=== PATIENT | female | born 1985 | race Caucasian/White ===

== ENCOUNTER → 2017-04-03 | Outpatient (CLI) | payer OTHER ==
[2017-04-03 12:04] LABS: CHOLESTEROL/HDL RATIO 2.7
== END | disposition home or self-care (01) ==
LOC: C.LABBC 08:02
PROVIDERS: ATTEND Family Medicine
DX: Z13.220 Encounter for screening for lipoid disorders (principal); G25.81 Restless legs syndrome

== ENCOUNTER → 2017-06-14 | Outpatient (CLI) | payer OTHER ==
[~2017-06-14] VITALS: Ht 167.6 cm; Wt 70.8 kg
[2017-06-14 15:00] VITALS: BP 123/85; PULSE 77; Ht 167.6 cm; Wt 70.8 kg
== END | disposition home or self-care (01) ==
LOC: C.NEUR 14:17
PROVIDERS: ATTEND Internal Medicine Pulmonary Disease
DX: G47.00 Insomnia, unspecified (principal); G47.10 Hypersomnia, unspecified; R06.83 Snoring; G25.81 Restless legs syndrome; R53.83 Other fatigue

== ENCOUNTER → 2017-07-08 | Outpatient (CLI) | payer OTHER ==
--- NOTE | 2017-07-09 06:03 | PAP/PSG TECHNICIAN REPORT ---
[facility] Cabinet Worker Polysomnogram Report Study name: None Report date: 07/09/2017 Study date: 07/08/2017 Referring Physician: Leonid Louis M.D. Name: DEIDRE OLSEN Interpreting Physician: Leonid Louis M.D. Date of : 1985 Cabinet Worker: Lorri Aguilera RPSGT. Sex: Female Age: 31 StudyType: PSG Weight: 156 lbs Height: 31 years, Height 5' 6" Neck Circum: 13 inches BMI: 25.18 Medications: Iron 325 mg, Loryna3-0.02 mg, Vitamin Deficiency B-12 Patient History 31 yr. old female here for a diagnostic sleep study. Patient complains of frequent nocturnal awakenings, EDS, and unrefreshing sleep. Patients mother and sister have RICK. Patients [place] Sleepiness Scale Score is 20/24. Parameters Monitored NPSG: E1-M2, E2-M1, Fp1-M2, Fp2-M1, F3-M2, F4-M2, F4-M1, C3-M2, C4-M2, C4-M1, O1-M2, O2-M2, O2-M1, T3-M2, T4-M1, P3-M2, P4-M1, CHIN1, CHIN2, HR, EKG, Legs, PFLOW, SNOR, FLOW, CFLOW, Tidal Volume, THOR, ABDO, SpO2, PLTH, CPRESS, ETCO2 Wave, ETCO2, pH Sleep Architecture Sleep Stages Time at Lights Off 9:14:20 PM STAGES Time (min.) TST (%) Time at Lights On 5:27:50 AM Wake 46.5 -- Total Recording Time (TRT) 493.00 min. N1 36.5 8 Total Sleep Period (TSP) 471.5 min. N2 256.5 57 Total Sleep Time (TST) 446.5min. N3 82.0 18 Awake Time 46.5 min. REM 71.5 16 Wake after Sleep Onset 25.5 min. Sleep Efficiency (SE) 91 % Sleep Onset Latency (LE) 21.5 min. Number of Stage 1 Shifts None Awakenings 23 Stage Changes 107 Number of REM periods 5 REM 71.5 16 REM Latency 82.0 min. NREM 375.0 84 Body Position Analysis Supine Right Left Side Prone Vertical Total Sleep Time (min.) 151.2 168.4 133.4 301.76 0.0 7.6 Total Sleep Time (%) 32% 38% 30% 68 0% N/A% Total Sleep Time REM (min.) 32.5 14.0 25.0 None 0.0 0.0 Total Sleep Time NREM (min.) 112.2 154.4 108.4 None 0.0 0.0 Intermittent Wake (min.) 6.5 12.4 19.9 None 0.0 7.6 Total Sleep Period (%) 32% None None None None None Arousals Myoclonus (PLM) * Events Count Index Events Count Index Spontaneous 12 2 Events Awake (PLMW) 60 77.4 Respiratory 0 0.0 Events Asleep w/ Arousal (PLMA) 39 5.2 PLM 39 5 Events Asleep w/o Arousal (PLMS) 134 18.0 Snoring 14 2 Total Asleep 173 23.2 Total 65 9 Total 233 28 Respiratory Analysis * CA OA MA CH H RERA Total Count 0 0 0 0 0 0 0 Index 0.0 0.0 0.0 0 0.0 0 0.0 Mean Duration 0.0 0.0 0.0 0.00 0.0 0.0 0.0 Longest Duration 0.0 0.0 0.0 0.00 0.0 0.0 0.0 Respiratory Event Summary Total Supine ~Supine Right Left Prone REM NREM Apneas Count 0 0 0 0 0 N/A 0 0 Index 0.0 0 0 0.0 0.0 N/A 0 0 Hypopneas (4% Desat) Count 0 0 0 0 0 N/A 0 0 Index 0.0 0.0 0 0.0 0.0 N/A 0.0 0.0 Apneas & All Hypopneas Count 0 0 0 0 0 N/A 0 0 Index 0.0 0 0 0 0 N/A 0.0 0.0 Respiratory Events (Vice President Sales+All Hyp+RERA) Count 0 0 0 0 0 N/A 0 0 Index 0.0 0 0 0.0 0.0 N/A 0.0 0.0 Respiratory Related Arousal Count 0 0 0 0 0 N/A 0 0 Index 0.0 0 0 0 0 N/A 0 0 Snoring Analysis Supine Right Left Prone REM NREM Total Snore duration 3.0 min Snores count 14 28 28 N/A 9 61 70 Snore mean duration 2.6 Sec Snores index 6 10 13 N/A 7.6 9.8 9.4 TST with snoring (%) 0.7% Desaturation Event Summary: Minimum %SpO2 Event Count Mean/Min/Max Duration(sec.) Desaturation Index % Time In Bed > 90 2 16.3 / 16.0 / 16.5 0.2 99.7 86 - 90 0 N/A 0.0 0.3 81 - 85 0 N/A 0.0 0.0 76 - 80 0 N/A 0.0 0.0 71 - 75 0 N/A 0.0 0.0 66 - 70 0 N/A 0.0 0.0 61 - 65 0 N/A 0.0 0.0 56 - 60 0 N/A 0.0 0.0 51 - 55 0 N/A 0.0 0.0 < 50 0 N/A 0.0 0.0 Total REM NREM Awake <50% 0.0 min. 0.0 min. 0.0 min. 0.0 min. 51 - 60% 0.0 min. 0.0 min. 0.0 min. 0.0 min. 61 - 70% 0.0 min. 0.0 min. 0.0 min. 0.0 min. 71 - 80% 0.0 min. 0.0 min. 0.0 min. 0.0 min. 81 - 90% 1.4 min. 0.0 min. 0.0 min. 1.4 min. 91 - 100% 488.4 min. 71.5 min. 374.9 min. 42.1 min. Average 95 96 95 94 Minimum SpO2 68 91 91 68 Desaturation Event Index 0.2 0.0 0.2 1.3 # Desat. Events below 89% 1 N/A N/A 1 Time(%) with Saturation below 89% 0.2 0.0 0.0 0.2 Time(min.) with Saturation below 89% 0.8 0.0 0.0 0.8 Time (mins) REM (mins) NREM (mins) % of TST SpO2 Below 90% N/A N/A NN/A 0.0 SpO2 Below 88% 0 0 0 0 Heart Rate Analysis Min (bpm) Max (bpm) Average (bpm) Awake 52 173 69 NREM 48 114 59 REM 52 98 60 Overall 48 114 59 Supplemental O2 Values Minimum O2 level: None Value Start Time End Time Cabinet Worker Comments MS. Olsen slept in the right, left, and supine positions. No cardiac arrhythmia. Occasional PLMs noted. No bruxism noted. Snoring was noted and scored as a1 on a scale of 0 through 5. (0=no snoring, 5=snoring loud enough to be heard through a closed door or down the [address] way) MS. Olsen did not wake to use the restroom during the night. MS. Olsen stated, that was a normal night. The final report will be interpreted and signed by a sleep physician. The completed physician report will then be placed in the patient medical record. Therapy (cm H2O) 0 TIB (min.) 493.0 TST (min.) 446.5 Sleep Onset (min.) 21.5 REM Onset From Sleep (min.) 82.0 Sleep Efficiency % 91 Wakefulness (%) 9 Wakefulness (min.) 46.5 NREM 1 (%) 8 NREM 1 (min.) 36.5 NREM 2 (%) 57 NREM 2 (min.) 256.5 NREM 3 (%) 18 NREM 3 (min.) 82.0 REM (%) 16 REM (min.) 71.5 # Arousals 65 Arousal Index 9 # Snore 70 Snore Index 9.4 AHI 0.0 AHI Supine 0 AHI Non-Supine 0 NREM AHI 0.0 REM AHI 0.0 RDI 0.0 # Obstructive Apnea 0 # Central Apnea 0 # Mixed Apnea 0 # Hypopneas 0 RERAs 0 Total Respiratory Events 1 Time Below SpO2 89% (min.) 0.0 Mean NREM SpO2 (%) 95 Mean REM SpO2 (%) 96 Mean Sleep SpO2 (%) 95 Min NREM SpO2 (%) 91 Min REM SpO2 (%) 91 Position Supine (min.) 151.2 Position Non-supine (min.) 301.8 LM Index Sleep 23.2 LM Index NREM 22.2 LM Index REM 28.5 Mean Heart Rate (bpm) 59 Min Heart Rate (bpm) 48
--- NOTE | 2017-07-11 13:44 | POLYSOMNOGRAPH REPORT ---
CLINICAL DATA: 31-year-old female with BMI of 25.2 referred by myself and Dr. Hicks with complaints of frequent nocturnal awakenings, excessive daytime sleepiness, and unrefreshing sleep. Both her mother and sister have sleep apnea. Her [place] sleepiness score is 20/24. SLEEP ARCHITECTURE: Total sleep period was 471.5 minutes. Total sleep time was 446.5 minutes divided between 375 minutes of non-REM sleep and 71.5 minutes of REM sleep. Sleep onset latency was 21.5 minutes. REM latency was 82 minutes. Sleep efficiency was 91%. Wake after sleep onset was 25.5 minutes. Sleep consisted of stage N1 8%, stage N2 57%, stage N3 18%, and REM 16%. AROUSAL DATA: 65 arousals were recorded for an index of 9 per hour. PLM DATA: Mild PLMD was seen. There were 173 limb movements during sleep noted for an index of 22.2 per hour with arousal index of 5.2 per hour. RESPIRATORY DATA: There was no evidence of sleep apnea seen. The AHI was 0. No respiratory events were recorded. OXIMETRY DATA: No hypoxemia was seen. Oxygen hal was 91%. Mean saturation was 95%. EKG: Heart rates ranged from 48-114 beats per minute. No arrhythmias were noted. HEATING AND VENTILATION ENGINEER'S COMMENTS AND TREATMENT SUMMARY: The patient slept in the right, left, and supine positions. Snoring was mild rated 1 on a scale of 1-5. IMPRESSION: 1. No evidence of clinically significant sleep apnea/hypopnea or nocturnal hypoxemia. 2. Mildly elevated limb movements during sleep with intermittent arousal possibly consistent with PLMD. RECOMMENDATIONS: The patient should continue to practice good sleep hygiene. Evaluation for and treatment of RLS/PLMD may be of benefit. Clinical correlation is needed. MTDD
== END | disposition home or self-care (01) ==
LOC: C.NEUR 21:00
PROVIDERS: ATTEND Internal Medicine Pulmonary Disease
DX: R53.83 Other fatigue (principal); G47.10 Hypersomnia, unspecified; G47.00 Insomnia, unspecified; G25.81 Restless legs syndrome; R06.83 Snoring

== ENCOUNTER → 2017-08-02 | Outpatient (CLI) | payer OTHER ==
[~2017-08-02] VITALS: Ht 167.6 cm; Wt 70.0 kg
[2017-08-02 12:57] VITALS: BP 135/93; PULSE 87; Ht 167.6 cm; Wt 70.0 kg
== END | disposition home or self-care (01) ==
LOC: C.NEUR 12:30
PROVIDERS: ATTEND Internal Medicine Pulmonary Disease
DX: R53.83 Other fatigue (principal); G47.10 Hypersomnia, unspecified; G47.00 Insomnia, unspecified; G25.81 Restless legs syndrome

== ENCOUNTER → 2017-12-16 | Outpatient (CLI) | payer OTHER ==
--- NOTE | 2017-12-16 07:34 | DIAGNOSTIC IMAGING REPORT ---
RENAL ULTRASOUND CLINICAL HISTORY: BILATERAL FLANK PAIN COMPARISON STUDY: None. TECHNIQUE: Sonography of the kidneys and the urinary bladder was performed. FINDINGS: The right kidney measures 10 cm in maximal dimension and the left measures 10.4 cm. There is no hydronephrosis. Renal echogenicity, size and cortical thickness are normal. No mass or calculus is identified by sonography. Both ureteral jets were identified. IMPRESSION: Normal renal ultrasound. No hydronephrosis. Electronically signed by: Nash Lam M.D. 12/16/2017 7:32 AM Dictated Date/Time: 12/16/2017 7:25 AM
--- NOTE | 2017-12-16 07:59 | DIAGNOSTIC IMAGING REPORT ---
KUB CLINICAL HISTORY: Chronic bilateral flank pain. Hematuria. FINDINGS: 2 AP supine abdominal radiographs are correlated with renal ultrasound performed the same day 12/16/2017. There is a nonobstructed abdominal bowel gas pattern. Moderate colonic fecal retention is observed. There is no radiographic evidence of nephrolithiasis. Small phleboliths are seen in the pelvis. The bony structures appear intact. The lung bases are clear as imaged. IMPRESSION: There is no radiographic evidence of nephrolithiasis. Electronically signed by: Forrest Huerta M.D. 12/16/2017 7:58 AM Dictated Date/Time: 12/16/2017 7:47 AM
== END | disposition home or self-care (01) ==
LOC: C.ULTR 06:52
PROVIDERS: ATTEND Physician Assistant
DX: R10.9 Unspecified abdominal pain (principal)

== ENCOUNTER → 2018-01-03 | Outpatient (CLI) | payer OTHER ==
[2018-01-03 18:55] LABS: BASO % 0.4 %; BASO ABS # 0.04 K/uL (0-0.2); EOS % 3.3 %; EOS ABS # 0.31 K/uL (0-0.5); HEMATOCRIT 40.6 % (37-47); HEMOGLOBIN 14.2 g/dL (12.0-16.0); IG# 0.02 K/uL (0.00-0.02); LYMPH % 24.7 %; LYMPH ABS # 2.32 K/uL (1.2-3.4); MEAN CELL VOLUME 87.9 fL (80-100); MEAN CORPUSCULAR HEMOGLOBIN 30.7 pg (25-34); MEAN PLATELET VOLUME 10.9 fL (7.4-10.4); MONO % 5.8 %; MONO ABS # 0.54 K/uL (0.11-0.59); NEUT % 65.6 %; NEUT ABS # 6.15 K/uL (1.4-6.5); PLATELET COUNT 248 K/uL (130-400); RED CELL DISTRIBUTION WIDTH CV 12.6 % (11.5-14.5); RED CELL DISTRIBUTION WIDTH SD 40.6 fL (36.4-46.3); WHITE BLOOD COUNT 9.38 K/uL (4.8-10.8)
[2018-01-03 19:23] LABS: ALBUMIN 3.8 gm/dl (3.4-5.0); ALT/SGPT 37 U/L (12-78); BLOOD UREA NITROGEN 9 mg/dl (7-18); CALCIUM 8.8 mg/dl (8.5-10.1); CARBON DIOXIDE 26 mmol/L (21-32); CREATININE 0.78 mg/dl (0.60-1.20); GLUCOSE 81 mg/dl (70-99); POTASSIUM 3.5 mmol/L (3.5-5.1); SODIUM 137 mmol/L (136-145)
[2018-01-03 19:34] LABS: ALKALINE PHOSPHATASE 81 U/L (45-117); AST/SGOT 23 U/L (15-37); TOTAL PROTEIN 7.7 gm/dl (6.4-8.2)
== END | disposition home or self-care (01) ==
LOC: C.LAB 17:35
PROVIDERS: ATTEND Physician Assistant
DX: R53.82 Chronic fatigue, unspecified (principal); R47.89 Other speech disturbances; R10.9 Unspecified abdominal pain; E53.8 Deficiency of other specified B group vitamins

== ENCOUNTER → 2018-01-07 | Outpatient (CLI) | payer OTHER ==
--- NOTE | 2018-01-07 07:34 | DIAGNOSTIC IMAGING REPORT ---
CT SCAN OF THE ABDOMEN AND PELVIS WITHOUT CONTRAST CLINICAL HISTORY: Bilateral flank pain COMPARISON STUDY: No previous studies for comparison. TECHNIQUE: CT scan of the abdomen and pelvis was performed from the lung bases to the proximal femurs. Images are reviewed in the axial, sagittal, and coronal planes. IV contrast was not administered for this examination. A dose lowering technique was utilized adhering to the principles of ALARA. CT DOSE: 801.73 mGy.cm FINDINGS: Lower chest: There is a 4 mm pleural-based left lower lobe pulmonary nodule. In a low risk patient, no further follow-up is indicated. There are no pleural effusions. Liver: The unenhanced liver is normal in size, contour, and attenuation. There is no intrahepatic biliary ductal dilatation. Gallbladder: Unremarkable. Spleen: Normal in size and attenuation. Pancreas: Unremarkable. Adrenal glands: Unremarkable. Kidneys: The unenhanced kidneys are normal in size without hydronephrosis. There is no contour deforming renal mass lesion. No renal calculi are identified. Bowel: There are no transition zone to indicate bowel obstruction. There are few colonic diverticula. There are no findings to indicate acute diverticulitis. The appendix is at the upper limits of normal in size measuring 6 mm. There are no periappendiceal inflammatory changes. Peritoneum: There is a small amount of free pelvic fluid. There is no free intraperitoneal air. Vasculature: The abdominal aorta is normal in course and caliber. Adenopathy: None. Pelvic viscera: The bladder, and pelvic viscera are unremarkable. Skeletal structures: No destructive osseous lesions are seen. IMPRESSION: 1. No evidence of bowel obstruction. No evidence of free air 2. No renal, ureteral, or bladder calculi identified 3. No evidence of acute appendicitis. No evidence of acute diverticulitis 4. Small amount of free pelvic fluid Electronically signed by: López Gallardo M.D. 01/07/2018 7:32 AM Dictated Date/Time: 01/07/2018 7:27 AM
== END | disposition home or self-care (01) ==
LOC: C.CTS 06:58
PROVIDERS: ATTEND Physician Assistant
DX: R10.9 Unspecified abdominal pain (principal); R82.90 Unspecified abnormal findings in urine

== ENCOUNTER → 2018-04-08 | Outpatient (CLI) | payer OTHER | END | disposition home or self-care (01) | LOC: C.LAB 07:45 | PROVIDERS: ATTEND Physician Assistant | DX: G43.109 Migraine with aura, not intractable, without status migrainosus (principal); G44.209 Tension-type headache, unspecified, not intractable; Z00.00 Encounter for general adult medical examination without abnormal findings ==

== ENCOUNTER 2019-06-28 09:39 | Inpatient (IN) ==
[2019-06-28] MEDS ORDERED: OXYTOCIN 30 UNITS/500 ML BAG IV PRN ×2 (09:56→17:00)
[2019-06-28] MEDS ORDERED: LACTATED RINGER'S 1,000 ML IV PRN ×2 (09:56→11:00)
--- NOTE | 2019-06-28 10:02 | History & Physical Report ---
Date of Service June 28, 2019 Assessment & Plan (1) : Admit to L&D. IVF/labs. EFM/toco. Plans for epidural, but not yet. Will ambulate. History of Present Illness Chief Complaint: labor Primary Care Provider: Shannon Owens PA-C 33yo @ 39 10/02 presents with contractions every 2 minutes. No leaking of fluid, no vaginal bleeding. + movement. uncomplicated. Allergies Allergy/AdvReac Type Severity Reaction Status Date / Time amoxicillin Allergy hives, Verified 06/26/19 08:24 mouth ulcers ropinirole Allergy Verified 06/26/19 08:24 Home Medications Home Medications Medication Instructions Recorded Confirmed Type pedi multivit no.25-folic acid 300 mcg PO HS 04/02/19 06/26/19 History [Flintstones Multivitamin] Patient History Medical History Screening, , for anatomic survey (Resolved) History of asthma History of breast lump History of chicken pox History of migraine History of ovarian cyst History of pneumonia History of restless legs syndrome Low grade squamous intraepithelial lesion (LGSIL) on Papanicolaou smear of cervix Mild dysplasia of cervix (JEN I) 03/14/11, 08/06/12, 09/02/14 Surgical History History of colposcopy with cervical biopsy 03/14/11, 08/06/12, 09/02/14 History of cryosurgery 5 years ago S/P wisdom tooth extraction Family History Father Hypertension Sister Hypertension Renal failure Thyroid disease Grandfather (Paternal) FH: malignant neoplasm of thyroid Mother Thyroid disease Leaky heart valve Other Obstructive sleep apnea Social History marital status: Current Living Situation: Family Current Living Situation Comment: spouse and daughter current occupational status: employed current occupation: RN- [employer] Feels Safe at Home: Yes Smoking Status: Never smoker Hx Alcohol Use: No Hx Substance Use: No Review of Systems All systems reviewed & are unremarkable except as noted in HPI & below Physical Exam Physical Exam: Cervix: 2-3/100/-2. FHT Cat 1 [place] Q 2 Constitutional: WD/WN, vitals as above Respiratory: normal respiratory effort, lungs clear to auscultation no respiratory distress Cardiovascular: Rate/Rhythm: regular rate and regular rhythm Gastrointestinal (Abdomen): Inspection/Auscultation: abdomen normal to inspection Percussion/Palpation: abdomen soft; abdomen nontender Gravid. No s/s chorio or abruption. Skin: no rashes, warm and dry Psychiatric: A+Ox3, euthymic affect Results & Data Vital Signs (Past 12 Hours) Vital Signs Pulse BP 06/28/19 09:48 89 131/87
[2019-06-28 10:17] LABS: Hematocrit (blood only) 36.2 % (37-47); Hemoglobin 11.5 g/dL (12.0-16.0); Mean Corpuscular Hemoglobin 26.9 pg (25-34); Mean Corpuscular Volume 84.8 fL (80-100); Mean Platelet Volume 11.3 fL (7.4-10.4); Platelet Count 246 K/uL (130-400); RDW Coefficient of Variation 13.8 % (11.5-14.5); RDW Standard Deviation 42.1 fL (36.4-46.3); Red Blood Count 4.27 M/uL (4.2-5.4); White Blood Count 15.62 K/uL (4.8-10.8)
[2019-06-28 10:21] LABS: Mean Corpuscular Hgb Conc 31.8 g/dL (32-36)
[2019-06-28] MEDS ORDERED: BUPIVACAINE 0.25% 30 ML VIAL ONE (12:03)
[2019-06-28] MEDS ORDERED: fentaNYL citrate 100 MCG/2 ML VIAL ONE (12:03)
[2019-06-28] MEDS ORDERED: ePHEDrine sulfate 50 MG/ML AMP ONE (12:03)
[2019-06-28] MEDS ORDERED: fentaNYL 2MCG/ML ROPIV 1.25MG/ML 100 ML BAG EPI ONE (12:04)
[2019-06-28] MEDS ORDERED: NALOXONE HCL 1 MG in SODIUM CHLORIDE 0.9% 1000ML 1,000 ML IV PRN (12:23)
[2019-06-28] MEDS ORDERED: NALBUPHINE HCL INJ 10 MG/ML AMP IV PRN (12:23)
[2019-06-28] MEDS ORDERED: DiphenhydrAMINE HCL 50 MG/ML VIAL IV PRN (12:23)
[2019-06-28] MEDS ORDERED: NALOXONE HCL 0.4 MG/1 ML VIAL/CARP IV PRN (12:23)
[2019-06-28] MEDS ORDERED: fentaNYL 2MCG/ML ROPIV 1.25MG/ML 100 ML BAG EPI PRN (12:23)
[2019-06-28] MEDS ORDERED: ONDANSETRON INJ 2 MG/ML 2 ML VIAL IV PRN (12:23)
[2019-06-28] MEDS ORDERED: ePHEDrine sulfate 50 MG/ML AMP IV PRN (12:23)
--- NOTE | 2019-06-28 12:30 | Anesthesiology Consultation ---
Date of Service June 28, 2019 Assessment & Plan (1) Encounter for pre-operative examination: Chart Review Chart Review: Acceptable Risk for Labor Epidural Consults Requested none ASA ASA2 Proposed Anesthesia Anesthesia Type: Labor Epidural Risk / Benefits Reviewed With: PT / POA / Parent / Guardian, Accepts Plan and Informed Consent Obtained History Height/Weight Height: 5 ft 6 in Weight: 85.729 kg Allergies Allergy/AdvReac Type Severity Reaction Status Date / Time amoxicillin Allergy hives, Verified 06/26/19 08:24 mouth ulcers ropinirole Allergy Verified 06/26/19 08:24 Medications Home Medications Medication Instructions Recorded Confirmed Last Taken pedi multivit no.25-folic acid 1 tab PO DAILY 06/28/19 06/28/19 06/27/19 21:00 Past Medical History Medical History Screening, , for anatomic survey (Resolved) History of asthma History of breast lump History of chicken pox History of migraine History of ovarian cyst History of pneumonia History of restless legs syndrome Low grade squamous intraepithelial lesion (LGSIL) on Papanicolaou smear of cervix Mild dysplasia of cervix (JEN I) 03/14/11, 08/06/12, 09/02/14 Exercise / Class Metabolic Activity II 4-5 Yardwork/Stairs/Walk up hill Past Family History Family History Father Hypertension Sister Hypertension Renal failure Thyroid disease Grandfather (Paternal) FH: malignant neoplasm of thyroid Mother Thyroid disease Leaky heart valve Other Obstructive sleep apnea Past Surgical History Surgical History History of colposcopy with cervical biopsy 03/14/11, 08/06/12, 09/02/14 History of cryosurgery 5 years ago S/P wisdom tooth extraction Past Anesthesia History No Hx of Anesthesia Complications and No Family Hx of Anesthesia Complications History of PONV No Hx of PONV and No Hx of Motion Sickness Social History Smoking Status: Never smoker Do You Dip or Chew Tobacco: No Hx Alcohol Use: No Hx Substance Use: No substance use type: does not use Physical Exam Vital Signs Last Vital Signs Temp 98.8 F 06/28/19 11:29 Pulse 78 06/28/19 12:27 Resp 18 06/28/19 11:29 BP 121/86 06/28/19 11:30 Pulse Ox 100 06/28/19 12:27 ENMT Mouth: no dentition abnormality Thyromental Distance: > or= 3.5 Finger Breadths Mallampati Class: II Neck normal visual inspection Respiratory normal respiratory effort Auscultation: lungs clear to auscultation bilaterally Cardiovascular Rate/Rhythm: regular rate and regular rhythm Testing Laboratory Results 06/28/19 10:02
--- NOTE | 2019-06-28 16:33 | Delivery Summary ---
Vaginal Delivery Summary Date of Service June 28, 2019 Vaginal Delivery Summary Vaginal Delivery Summary: Pre-delivery diagnoses: 33yo @ 39 2/, spontaneous labor Post-delivery diagnoses: same, cervical laceration Procedure: vacuum assisted vaginal delivery, repair of cervical laceration Surgeon: Jocy Da Silva DO Complications: none Findings: Viable female . Apgars: 8/9. Weight pending, please see nursery records. Estimated blood loss: 300ml Description of delivery: The patient progressed to complete quickly from 3-10cm with epidural anesthesia. She then began to push. FHT were dropping to 70s with contractions, then the last few minutes of pushing were persistently in the 70s. I quickly discussed with patient need for vacuum to assist with delivery, due to low FHT. She verbally consented. station +3, Kiwi vacuum applied to occiput 2cm from flexion point. With a single push and gentle guidance with vacuum, she vaginally delivered a viable from the cephalic presentation. The head delivered in [place] position. Nuchal cord x 1 easily reduced. The anterior shoulder delivered, followed by the posterior shoulder, followed by the body. The baby was placed on mother's abdomen and a spontaneous cry was heard. Cord was doubly clamped and cut immediately, and the baby was handed off to the waiting pediatrics team. A segment was retained for cord gases, and cord gases were sent. Cord blood was obtained. The placenta was delivered spontaneously intact with a 3-vessel cord - placenta with marginal insertion of cord. The uterus and vagina were swept of clots and debris. IV pitocin was given. The uterus became firm. The cervix, vagina, and perineum were inspected and a small cervical laceration was noted with a pumping arterial bleed. This was grasped with a ring forcep, and a [id number] stitch was used to obtain hemostasis. Excellent hemostasis was observed at cervix, uterus, vagina, perineum. The mother and baby are recovering in stable and good condition in the room. Sponge, needle, and instrument counts were correct x 2. I debriefed patient and FOB at bedside after delivery and answered their questions. Baby is awake, moving all limbs, and screaming. Jocy Da Silva DO FACOOG
[2019-06-28] MEDS ORDERED: DIPHTHERIA/TETANUS/PERTUSSIS 0.5 ML SYR/VIAL IM ONE (17:00)
[2019-06-28] MEDS ORDERED: OXYCODONE/ACETAMINOPHEN 5mg/325mg TAB PO PRN (17:00)
[2019-06-28] MEDS ORDERED: SUPERCREAM 0.870% 15 GM JAR EXT PRN (17:00)
[2019-06-28] MEDS ORDERED: ACETAMINOPHEN 325 MG TAB PO PRN (17:00)
[2019-06-28] MEDS ORDERED: BENZOCAINE 20% AER SPR 82.5 GM CAN EXT PRN (17:00)
[2019-06-28] MEDS ORDERED: HYDROCORTISONE ACETATE 25 MG SUPP PR PRN (17:00)
[2019-06-28] MEDS ORDERED: BISACODYL 10 MG SUPP PR PRN (17:00)
[2019-06-28] MEDS: IBUPROFEN 600 MG TAB PO PRN (17:50)
--- NOTE | 2019-06-28 19:14 | Anesthesia Procedure Note ---
Date of Service June 28, 2019 Anesthesia Post Epidural Note Vital Signs Vital Signs: Temp Pulse Resp BP Pulse Ox 98.4 F 88 18 117/79 100 06/28/19 15:10 06/28/19 18:33 06/28/19 18:15 06/28/19 18:33 06/28/19 16:22 Pain Intensity Bilateral Lower Abdomen: Pain Intensity: 0 Notes Mental Status: alert / awake / arousable and participated in evaluation Nausea / Vomiting: adequately controlled Pain: adequately controlled Airway Patency, RR, SpO2: stable & adequate BP & HR: stable & adequate Hydration State: stable & adequate Neuraxial Anesthesia: was administered and sensory block is resolving Anesthetic Complications: no major complications apparent and Pt Satisfied with anesthetic care Epidural: Removed without complications and With tip intact
[2019-06-28] MEDS: DOCUSATE SODIUM 100 MG CAP PO SCH (20:16)
[2019-06-29] MEDS: IBUPROFEN 600 MG TAB PO PRN ×4 (00:10→13:14)
[2019-06-29 05:49] LABS: Hematocrit (blood only) 31.3 % (37-47)
--- NOTE | 2019-06-29 06:32 | Obstetrical Progress Note ---
Date of Service <Ahmet Domínguezfrancis - Last Filed: 06/29/19 06:34> June 29, 2019 Assessment & Plan <Ahmet DomíngueznDO - Last Filed: 06/29/19 06:34> (1) Encounter for supervision of normal in multigravida: -PPD#1 -Vitals reviewed, WNL (Tmax 37.1) - GBS -, Blood Type A+ - Clinically stable. - Feels well today. Eating well, voiding well, ambulating well. - Pain well controlled. - Routine post- care - After discharge will have [address] Da Silva. Present on Admission?: Yes Day #:: 1 Subjective <Ahmet DomínguezDO francis - Last Filed: 06/29/19 06:34> Ambulation: ambulating normally Voiding: no voiding problems Passing Gas:: No Diet Tolerance:: regular diet Lochia:: Large (not worsening) Feeding Type:: breast feeding Current Pain Level(1-10): 4 (improves with analgesics) Patient is a 33 PPD#1. Patient states that she is feeling well today and that her pain is well controlled. She has no other complaints at this time. Constitutional: no fever and no chills Respiratory: no cough, no dyspnea and no wheezing Cardiovascular: no chest pain, no dyspnea, no palpitations, no edema and no calf pain Breast: no breast pain Gastrointestinal: no abdominal pain, no nausea and no vomiting Genitourinary (female): no dysuria and no difficulty urinating Neurologic: no headache(s) Physical Exam <Ahmet DomínguezDO francis - Last Filed: 06/29/19 06:34> Constitutional WD/WN, vitals as above Respiratory normal respiratory effort, lungs clear to auscultation Cardiovascular Rate/Rhythm: regular rate and regular rhythm Heart Sounds: normal S1 and normal S2; no click, no gallop, no murmur and no cardiac rub Extremities: no calf tenderness and no edema Gastrointestinal (Abdomen) Inspection/Auscultation: abdomen normal to inspection and normal bowel sounds Percussion/Palpation: + abdomen tender (slight TTP lower quadrants) and abdomen soft Psychiatric A+Ox3, euthymic affect Genitourinary OB Exam Abdomen: + fundal height Fundus: + firm and + relation to umbilicus (3cm above, likely secondary to patient not voiding all night); not tender and not boggy Results & Data <Ahmet CottoDO roxy - Last Filed: 06/29/19 06:34> Vital Signs (Past 12 Hours) Vital Signs Temp Pulse Pulse Resp BP BP Pulse Ox 06/29/19 03:20 36.7 C 79 18 114/71 06/29/19 00:01 37 C 73 18 116/78 06/28/19 19:24 36.9 C 91 H 18 115/78 97 06/28/19 18:33 88 117/79 Laboratory Results Abnormal lab results 06/28/19 06/29/19 Range/Units 10:02 05:37 WBC 15.62 H (4.8-10.8) K/uL Hgb 11.5 L 10.0 L (12.0-16.0) g/dL Hct 36.2 L 31.3 L (37-47) % MCHC 31.8 L (32-36) g/dL MPV 11.3 H (7.4-10.4) fL Medications Administered Current Inpatient Medications Acetaminophen (Tylenol) 650 mg PO Q6H PRN PRN Reason: Pain/DUDLEY/Fever Stop: 07/28/19 16:59 Benzocaine (Dermoplast Pain Relieving [place]) 1 appln EXT PRN PRN PRN Reason: Perineal Discomfort Stop: 07/28/19 16:59 Bisacodyl (Dulcolax) 5 mg PO 1999 [facility] Stop: 06/29/19 20:01 Bisacodyl (Dulcolax) 10 mg DC DAILY PRN PRN Reason: No BM on 2nd post- day Stop: 07/28/19 16:59 Cocaine HCl (Supercream 0.870%) 1 gm EXT BID PRN PRN Reason: Hemorrhoidal Inflammation Stop: 07/12/19 16:59 Docusate Sodium (Colace) 100 mg PO DAILY@08,21 [facility] Stop: 07/28/19 20:59 Last Admin: 06/28/19 20:16 Dose: 100 mg Documented by: Hydrocortisone (Anusol Hc) 25 mg DC BID PRN PRN Reason: Hemorrhoidal Inflammation Stop: 07/28/19 16:59 Oxytocin (Pitocin) 30 units in 500 mls @ 333.333 mls/hr IV .Q1H30M PRN; Protocol PRN Reason: Bleeding Control Stop: 07/28/19 16:59 Last Titration: 06/28/19 16:42 Dose: Infused Documented by: Ibuprofen (Motrin) 600 mg PO Q4H PRN PRN Reason: Pain/DUDLEY/Cramping/Fever Stop: 07/28/19 16:59 Last Admin: 06/29/19 05:16 Dose: 600 mg Documented by: Oxycodone/Acetaminophen (Percocet 5mg/325mg) 1 tab PO Q4H PRN PRN Reason: Pain not relieved by... Stop: 07/12/19 16:59 Last Admin: 06/29/19 00:10 Dose: 1 tab Documented by: Prenat Multivit/[place]/Iron/Folic Ac ( Vitamin) 1 tab PO DAILY@08 BELEN Stop: 07/29/19 07:59 <Jocy Da Silva DO - Last Filed: 06/29/19 07:31> Co-Signing Physician Notes Resident Physician Supervision Note: I was present with Dr. Melton during the history and exam. I discussed the case with the resident and agree with the findings and plan as documented in the note. Any exceptions or clarifications are listed here: PPD#1 doing well. Patient may want to go home today, discharge instructions reviewed. Documented By: Jocy Da Silva DO Resident Activity Tracking <Ahmet Melton DO - Last Filed: 06/29/19 06:34> Resident Involvement: Resident Care Provided Care Provided: OB Delivery
[2019-06-29] MEDS ORDERED: PRENATAL VITAMIN 1 TAB PO SCH (08:00)
[2019-06-29] MEDS: DOCUSATE SODIUM 100 MG CAP PO SCH (08:17)
[2019-06-29] MEDS ORDERED: BISACODYL 5 MG TABEC PO SCH (20:00)
--- NOTE | 2019-07-02 21:56 | Discharge Summary ---
Date of Service July 02, 2019 Admission HPI Per Admitting Provider 33yo @ 39 10/02 presents with contractions every 2 minutes. No leaking of fluid, no vaginal bleeding. + movement. uncomplicated. Hospital Course (1) : Spontaneous vaginal delivery. Discharged home PPD#1.
== END 2019-06-29 19:00 | disposition home or self-care (01) | DRG 768 ==
LOC: OPB 09:39 → 4S1 09:42 → 4S2 19:20

== ENCOUNTER 2022-08-14 07:37 | Inpatient (IN) ==
[2022-08-14] MEDS ORDERED: LIDOCAINE 1% LOCAL 20 ML VIAL INFIL PRN (07:56)
[2022-08-14] MEDS ORDERED: OXYTOCIN 30 UNITS/500 ML BAG IV PRN ×3 (07:56→18:42)
[2022-08-14 08:49] LABS: Hematocrit (blood only) 35.2 % (34.1-44.9); Hemoglobin 11.3 g/dl (12.0-16.0); Mean Corpuscular Hemoglobin 28.1 pg (25.0-34.0); Mean Corpuscular Hgb Conc 32.1 g/dL (32.0-36.0); Mean Corpuscular Volume 87.6 fL (80.0-100.0); Mean Platelet Volume 11.1 fL (9.4-12.3); Platelet Count 245 K/uL (130-400); RDW Coefficient of Variation 14.7 % (11.5-14.5); RDW Standard Deviation 46.9 fL (36.4-46.3); Red Blood Count 4.02 M/uL (3.93-5.22); White Blood Count 15.14 K/ul (4.8-10.8)
[2022-08-14] MEDS ORDERED: VANCOMYCIN CONSULT ACTIVE PRN (09:16)
[2022-08-14] MEDS: LACTATED RINGER'S 1,000 ML IV PRN ×3 (09:17→14:58)
[2022-08-14] MEDS ORDERED: VANCOMYCIN HCL 1,750 MG in SODIUM CHLORIDE 0.9% 500 ML IV ONE (09:27)
--- NOTE | 2022-08-14 09:59 | History & Physical Report ---
Date of Service August 14, 2022 Assessment & Plan (1) : (2) Abnormal hematological finding on screening of mother: Plan 36 yo at 39 6/7 wga presents for eIOL VSS Fetus cat 1 Labor - will start pit GBS+, has amox allergy but tolerated IM pcn once. Clinda resistant. Given allergy w/ hives, will start vanc epidural PRN Admission and Anticipated Discharge Date Admission Date: August 14, 2022 History of Present Illness Chief Complaint: IOL Primary Care Provider: Shannon Owens PA-C 36 yo at 39 6/7 wga presents for eIOL. +FM; denies ctx, LOF, VB. Had prado bulb placed last evening and fell out overnight PNI: + quad screen, low risk cfdna LSIL/HPV neg pap GBS+ Past [employer] Hx: G1 2006 at 39 wks G2 2018 VAVD at 39 wks G3 current q28-30d cycles denies hx STIs LSIL/HPV- pap, needs 1yr Allergies Allergy/AdvReac Type Severity Reaction Status Date / Time amoxicillin Allergy Intermediate hives, Verified 08/14/22 07:50 mouth ulcers ropinirole Allergy Intermediate Nausea Verified 08/14/22 07:51 Home Medications Medication Instructions Recorded Confirmed Type acetaminophen 325 mg tablet (Mapap 650 mg PO Q6H PRN fever or pain 06/29/19 08/14/22 Rx (acetaminophen)) #30 tabs prenat.vits,esau,[id number] 1 tab PO DAILY 01/01/22 08/14/22 History famotidine 20 mg tablet (Pepcid) 20 mg PO BID 07/10/22 08/14/22 History Patient History Medical History History of asthma History of breast lump History of chicken pox History of migraine History of ovarian cyst History of pneumonia History of restless legs syndrome Low grade squamous intraepithelial lesion (LGSIL) on Papanicolaou smear of cervix Mild dysplasia of cervix (JEN I) 03/14/11, 08/06/12, 09/02/14 Screening, , for anatomic survey Sweet's syndrome Surgical History History of colposcopy with cervical biopsy 03/14/11, 08/06/12, 09/02/14 History of cryosurgery 5 years ago S/P wisdom tooth extraction Family History Father Hypertension Sister Hypertension Renal failure Thyroid disease Grandfather (Paternal) FH: malignant neoplasm of thyroid Mother Thyroid disease Leaky heart valve Other Obstructive sleep apnea Denies family history of Ovarian cancer Breast cancer Colorectal cancer Social History Smoking Status: Never smoker Second Hand Exposure: No; Hx Alcohol Use: No Hx Substance Use: No Preferred Language: Luxembourgish Communication Ability: Effective Mixing Machine Attendant Required: No Beliefs That Will Affect Care: None marital status: marital status details: Leonid Garcia (36) [phone] Current Living Situation: Spouse Current Living Situation Comment: lives with and daughters current occupational status: employed current occupation: RN- [employer] Other Information That Helps Us Care for You: Yes Feels Safe at Home: Yes Safety Concerns: Feels Safe At This Time Assistive Devices: None Physical Exam Genitourinary: OB Exam Abdomen: + vertex and + estimated weight (7-8) Manual OB Exam: + cervical dilation (3-4), + cervical effacement 50% and + station -2 OB Exam Monitor Tracing: + external FHT monitor used, + external uterine monitor used (irreg ctx) and + category I (145/mod/+accel/-decel) Results & Data ([facility]) Vital Signs (Past 12 Hours) Vital Signs Temp Pulse Resp BP 08/14/22 07:52 98.2 F 20 08/14/22 09:18 86 18 125/81 08/14/22 07:46 85 135/84 Laboratory Results OB Labs: Blood Type A Positive 01/08/22 Antibody Screen NEGATIVE 01/08/22 Hemoglobin 11.3 g/dl (12.0-16.0) L 05/21/22 Hematocrit 34.4 % (34.1-44.9) 05/21/22 Mean Corpuscular Volume 88.8 fL (80-100) 01/08/22 Platelet Count 265 K/uL (130-400) 01/08/22 Rubella IgG Antibody Immune (Immune) 01/08/22 Rapid Plasma Reagin Nonreactive (Nonreactive) 01/08/22 Hepatitis B Surface Antigen Neg (Neg) 12/01/18 Hepatitis B Surface Antigen. NON-REACTIVE (NON-REACTIVE) 01/08/22 Hepatitis C Antibody (EIA) NON-REACTIVE (NON-REACTIVE) 01/08/22 HIV (1&2) Ab and P24 Ag, 4th Gener Neg (Neg) 12/01/18 HIV (1&2) Ag and Ab Confirmation NON-REACTIVE (NON-REACTIVE) 01/08/22 Glucose 1 Hour 50 gm Load 125 mg/dl (70-130) 05/21/22 OB Optional Labs: Chlamydia trachomatis RNA NOT DETECTED (NOT DETECTED) 01/08/22 Neisseria gonorrhoeae RNA NOT DETECTED (NOT DETECTED) 01/08/22 Thyroid Stimulating Hormone (TSH) 2.760 uIu/ml (0.300-4.500) 03/30/21 Labs Reviewed: Declines cfdna--mln abnormal quad - +T21, cfdna low risk - sln 01/08/22 Hep B Non reactive Hep C Non reactive HIV Non reactive Diagnostic Findings ant plac Coding Level of Care Code None Diagnoses Z34.90 Abnormal hematological finding on screening of mother O28.0
--- NOTE | 2022-08-14 12:24 | Labor Progress Brief Note ---
Date of Service August 14, 2022 Subjective SROM, doing ok w/o epidural so far Assessment & Plan (1) : (2) Abnormal hematological finding on screening of mother: Plan 36 yo at 39 6/7 wga presents for eIOL VSS Fetus cat 1 Labor - pit at 3, now s/p srom GBS+, has amox allergy but tolerated IM pcn once. Clinda resistant. Given allergy w/ hives, will start vanc epidural PRN Admission and Anticipated Discharge Date Admission Date: August 14, 2022 Physical Exam Genitourinary: Manual OB Exam: + cervical dilation 4 cm, + cervical effacement 50% and + station -2 OB Exam Monitor Tracing: + external FHT monitor used, + external uterine monitor used (q3) and + category I (140/mod/+accel/-decel) Results & Data ([facility]) Vital Signs (Past 12 Hours) Vital Signs Temp Pulse Resp BP 08/14/22 07:52 98.2 F 20 08/14/22 11:50 90 119/75 08/14/22 11:04 97.7 F 82 18 136/86 08/14/22 10:08 80 122/79 08/14/22 09:18 86 18 125/81 08/14/22 07:46 85 135/84 Coding Level of Care Code None Diagnoses Z34.90 Abnormal hematological finding on screening of mother O28.0
[2022-08-14] MEDS ORDERED: ePHEDrine sulfate 50 MG/ML AMP ONE (12:35)
[2022-08-14] MEDS ORDERED: fentaNYL 2MCG/ML ROPIVACAINE 1.25MG/ML 100 ML BAG EPI ONE (12:36)
[2022-08-14] MEDS ORDERED: SODIUM CHLORIDE 0.9% INJ 10 ML VIAL ONE (12:36)
[2022-08-14] MEDS ORDERED: BUPIVACAINE 0.25% 30 ML VIAL ONE (12:36)
[2022-08-14] MEDS ORDERED: fentaNYL citrate 100 MCG/2 ML VIAL ONE (12:36)
[2022-08-14] MEDS ORDERED: LIDOCAINE 2%/EPINEPHRINE 1:200,000 20 ML SDV ONE (12:36)
[2022-08-14] MEDS ORDERED: NALOXONE HCL 1 MG in SODIUM CHLORIDE 0.9% 1000ML 1,000 ML IV PRN (12:48)
[2022-08-14] MEDS ORDERED: NALOXONE HCL 0.4 MG/1 ML VIAL/CARP IV PRN (12:48)
[2022-08-14] MEDS ORDERED: ePHEDrine sulfate 50 MG/ML AMP IV PRN (12:48)
[2022-08-14] MEDS ORDERED: NALBUPHINE HCL INJ 10 MG/ML AMP IV PRN (12:48)
[2022-08-14] MEDS ORDERED: diphenhydrAMINE 50 MG/ML VIAL IV PRN (12:48)
[2022-08-14] MEDS ORDERED: fentaNYL 2MCG/ML ROPIVACAINE 1.25MG/ML 100 ML BAG EPI PRN (12:48)
--- NOTE | 2022-08-14 12:48 | Anesthesiology Consultation ---
Date of Service August 14, 2022 Assessment & Plan (1) Encounter for pre-operative examination: Chart Review Chart Review: Patient NOT seen in Pre Admission Testing and Acceptable Risk for Labor Epidural History Height/Weight Height: 5 ft 6 in Weight: 87.997 kg Allergies Allergy/AdvReac Type Severity Reaction Status Date / Time amoxicillin Allergy Intermediate hives, Verified 08/14/22 07:50 mouth ulcers ropinirole Allergy Intermediate Nausea Verified 08/14/22 07:51 Medications Home Medications Medication Instructions Recorded Confirmed Last Taken acetaminophen 325 mg tablet (Mapap 650 mg PO Q6H PRN fever or pain 06/29/19 08/14/22 Unknown (acetaminophen)) #30 tabs prenat.vits,esau,[id number]-[id number]-qptcz 1 tab PO DAILY 01/01/22 08/14/22 08/12/22 famotidine 20 mg tablet (Pepcid) 20 mg PO BID 07/10/22 08/14/22 08/14/22 0630 Active Medications Generic Name Dose Route Start Last Admin Trade Name Freq PRN Reason Stop Dose Admin Oxytocin 30 units in 500 mls @ 3 mls/hr 08/14/22 07:56 08/14/22 11:05 Pitocin IV 08/16/22 07:55 0.18 units/hr .Q24H PRN 3 mls/hr Labor Induction/Augmentation Titration Protocol 0.18 UNITS/HR Lactated Ringer's 1,000 mls @ 125 mls/hr 08/14/22 07:56 08/14/22 12:32 Lr IV 08/16/22 07:55 999 mls/hr .Q8H PRN Administration L&D Protocol Protocol Past Medical History Medical History History of asthma History of breast lump History of chicken pox History of migraine History of ovarian cyst History of pneumonia History of restless legs syndrome Low grade squamous intraepithelial lesion (LGSIL) on Papanicolaou smear of cervix Mild dysplasia of cervix (JEN I) 03/14/11, 08/06/12, 09/02/14 Screening, , for anatomic survey Sweet's syndrome Past Family History Family History Father Hypertension Sister Hypertension Renal failure Thyroid disease Grandfather (Paternal) FH: malignant neoplasm of thyroid Mother Thyroid disease Leaky heart valve Other Obstructive sleep apnea Denies family history of Ovarian cancer Breast cancer Colorectal cancer Past Surgical History Surgical History History of colposcopy with cervical biopsy 03/14/11, 08/06/12, 09/02/14 History of cryosurgery 5 years ago S/P wisdom tooth extraction Social History Smoking Status: Never smoker Hx Alcohol Use: No Hx Substance Use: No substance use type: does not use Physical Exam Vital Signs Last Vital Signs Temp 97.7 F 08/14/22 11:04 Pulse 90 08/14/22 11:50 Resp 18 08/14/22 11:04 BP 119/75 08/14/22 11:50 Testing Laboratory Results 08/14/22 08:16
--- NOTE | 2022-08-14 14:27 | Labor Progress Brief Note ---
Date of Service August 14, 2022 Subjective comfortable w/ epidural Assessment & Plan (1) : (2) Abnormal hematological finding on screening of mother: Plan 36 yo at 39 6/7 wga presents for eIOL VSS Fetus cat 2 but reassuring Labor - pit at 3, s/p srom. Some progress noted, continue induction GBS+, has amox allergy but tolerated IM pcn once. Clinda resistant. Given allergy w/ hives, will start vanc epidural in place Admission and Anticipated Discharge Date Admission Date: August 14, 2022 Physical Exam Genitourinary: Manual OB Exam: + cervical dilation (4-5), + cervical effacement 60% and + station -2 OB Exam Monitor Tracing: + external FHT monitor used, + external uterine monitor used (q3) and + category I (125/mod/+accel/few variables) Results & Data ([facility]) Vital Signs (Past 12 Hours) Vital Signs Temp Pulse Resp BP Pulse Ox 08/14/22 07:52 98.2 F 20 08/14/22 14:21 92 H 99 08/14/22 14:16 81 98 08/14/22 14:11 97 H 98 08/14/22 14:10 79 122/74 08/14/22 14:06 91 H 99 08/14/22 14:01 82 98 08/14/22 13:56 85 99 08/14/22 13:51 102 H 98 08/14/22 13:50 88 118/69 08/14/22 13:46 93 H 98 08/14/22 13:45 87 116/66 08/14/22 13:41 87 98 08/14/22 13:40 96 H 113/63 08/14/22 13:38 101 H 90 08/14/22 13:36 90 99 08/14/22 13:35 94 H 122/64 08/14/22 13:31 92 H 99 08/14/22 13:30 101 H 117/68 08/14/22 13:26 92 H 98 08/14/22 13:25 92 H 20 117/70 08/14/22 13:21 95 H 98 08/14/22 13:19 90 18 121/70 08/14/22 13:17 90 18 119/69 08/14/22 13:16 92 H 99 08/14/22 13:15 97.7 F 93 H 18 117/71 08/14/22 13:13 91 H 123/69 08/14/22 13:11 91 H 18 121/74 99 08/14/22 13:09 96 H 18 122/75 08/14/22 13:08 93 H 18 125/64 08/14/22 13:06 95 H 100 08/14/22 13:05 96 H 18 135/81 08/14/22 13:03 97 H 132/81 08/14/22 13:01 99 H 100 08/14/22 12:56 103 H 100 08/14/22 12:54 90 18 127/88 08/14/22 12:51 148 H 81 L 08/14/22 11:50 90 119/75 08/14/22 11:04 97.7 F 82 18 136/86 08/14/22 10:08 80 122/79 08/14/22 09:18 86 18 125/81 08/14/22 07:46 85 135/84 Coding Level of Care Code None Diagnoses Z34.90 Abnormal hematological finding on screening of mother O28.0
[2022-08-14] MEDS ORDERED: Nursing to Pharmacy Communication SCH (17:30)
--- NOTE | 2022-08-14 18:25 | Anesthesia Procedure Note ---
Date of Service August 14, 2022 Anesthesia Post Epidural Note Vital Signs Vital Signs: Temp Pulse Resp BP Pulse Ox 98.1 F 100 H 20 127/68 97 08/14/22 16:35 08/14/22 18:25 08/14/22 16:39 08/14/22 18:25 08/14/22 17:46 Pain Intensity Bilateral Abdomen: Pain Intensity: 4 Notes Mental Status: alert / awake / arousable and participated in evaluation Nausea / Vomiting: adequately controlled Pain: adequately controlled Airway Patency, RR, SpO2: stable & adequate BP & HR: stable & adequate Hydration State: stable & adequate Neuraxial Anesthesia: was administered and sensory block is resolving Anesthetic Complications: no major complications apparent and Pt Satisfied with anesthetic care Epidural: Removed without complications and With tip intact
[2022-08-14 18:38] LABS: CO2 Cord Arterial Blood 66 mmHg (39.1-73.5); HCO3 Cord Arterial Blood 23 mmol/L (19.7-28.5); Oxygen Sat Cord Arterial Blood < 60.0 % (<60); PO2 Cord Arterial Blood 34 mmHg (4.1-31.7); pH Cord Arterial Blood 7.15 (7.1-7.38)
[2022-08-14] MEDS ORDERED: IBUPROFEN 600 MG TAB PO ONE (18:38)
[2022-08-14 18:39] LABS: Base Excess Cord Venous Blood -7.4 mEq/L (-7.7-1.9); Cord Venous Blood HCO3 21 mmol/L (18.4-26.8); Cord Venous Blood PCO2 56 mmHg (30.4-57.2); Cord Venous Blood PO2 23 mmHg (14.1-43.3); Cord Venous Blood pH 7.19 (7.20-7.44); O2 Saturation Cord Venous Bld < 60.0 % (<68)
[2022-08-14] MEDS ORDERED: DIPHTHERIA/TETANUS/PERTUSSIS 0.5 ML SYR/VIAL IM ONE (18:42)
[2022-08-14] MEDS ORDERED: bisacodyL 10 MG SUPP PR PRN (18:42)
[2022-08-14] MEDS ORDERED: BENZOCAINE 20% AER SPR 82.5 GM CAN EXT PRN (18:42)
--- NOTE | 2022-08-14 18:43 | Delivery Summary ---
Vaginal Delivery Summary Date of Service August 14, 2022 Vaginal Delivery Summary VAVD PREOPERATIVE DIAGNOSIS: 1. Single intrauterine at 39 6/7 wga 2. Abnormal quad screen, low risk cfdna 3. GBS+ 4. Elective induction of labor POSTOPERATIVE DIAGNOSIS: 1. Single intrauterine at 39 6/7 wga 2. Abnormal quad screen, low risk cfdna 3. GBS+ 4. Elective induction of labor 5. Delivered PROCEDURE: 1. Vacuum assisted vaginal delivery. SURGEON: Stacie Dang MD ANESTHESIA: Epidural. ESTIMATED BLOOD LOSS: 300 mL FLUIDS: Continuous LR. URINE OUTPUT: None. COMPLICATIONS: None. CONDITION: Stable. INDICATIONS: 36 yo at 39 6/7 wga presented for IOL. Hernandez bulb was placed the evening prior and fell out overnight. She was found to be 3cm on arrival. Vancomycin was started for GBS+ prophylaxis and hx amoxicillin allergy, also clindamycin resistant. Pitocin was started and she had spontaneous rupture of membranes. She continued to progress to 6cm at which point decel was noted and pitocin was stopped. She continued to progress spontaneously until complete, at which time decel was noted. FINDINGS: A viable male infant, weight pending with Apgars of 8 and 9 at 1 and 5 minutes respectively. SPECIMEN: Cord blood, cord gases, placenta OPERATIVE REPORT: The patient progressed to 10 cm, 100% effaced and +2 station. There was a decel down to the 70s that did not resolve with maternal repositioning. Initially, pt did push over intact perineum with anesthesia with excellent effort and good progress however delivery did not rapidly occur. Due to persistent decel, pt was counseled regarding vacuum assist to rapidly effect delivery. Pt provided verbal consent after counseling. Vacuum was applied at +2 station in LOT position with care to avoid entrapping maternal tissue. Vacuum suction was increased to green zone and with maternal expulsive effort, one pull was performed to deliver a viable male in LOT position, weight and Apgars as above. No nuchal cord was present. Body and shoulders were delivered without difficulty. was delivered to maternal abdomen and nursing staff. Delayed cord clamping was performed for 60 seconds. Cord was clamped and cut. Cord segment and blood was obtained. Placenta delivered spontaneously intact with 3-vessel cord. IV oxytocin and fundal massage were given for excellent hemostasis. Vagina, cervix, perineum, and placenta were inspected. No lacerations were noted. Sponge and needle counts correct x2. No sponges were left behind. Mother and stable in immediate period. [facility] Vaginal Delivery Charge Vaginal Delivery Codes: 23970 global code for the antepartum, delivery, and post- Delivery Type Details: CÉSAR
[2022-08-14] MEDS ORDERED: VANCOMYCIN HCL 1,250 MG in SODIUM CHLORIDE 0.9% 250 ML IV PRN (21:00)
[2022-08-14] MEDS: HYDROCORTISONE ACETATE 25 MG SUPP PR PRN (21:35)
[2022-08-14] MEDS: DOCUSATE SODIUM 100 MG CAP PO SCH (21:35)
[2022-08-14] MEDS: IBUPROFEN 600 MG TAB PO PRN (23:17)
[2022-08-15] MEDS: ACETAMINOPHEN 325 MG TAB PO PRN ×2 (01:15→20:07)
[2022-08-15] MEDS ORDERED: ONDANSETRON 4 MG OD TAB PO PRN (03:48)
[2022-08-15] MEDS ORDERED: ONDANSETRON INJ 2 MG/ML 2 ML VIAL ONE (03:52)
[2022-08-15] MEDS: IBUPROFEN 600 MG TAB PO PRN ×5 (03:55→20:07)
--- NOTE | 2022-08-15 05:00 | Obstetrical Progress Note ---
Date of Service August 15, 2022 Assessment & Plan (1) care following vaginal delivery: Plan - Overall, feeling well and eating well today - Infant feeding going well without concern - Urinating and passing gas appropriately - Ambulating well in room - Pain controlled w/ Ibuprofen + Tylenol - Hgb 11.3 on 08/14 - Vitals stable and wnl - GBS + received Vancomycin d/t PCN allergy - Routine PP care progressing well - Anticipate discharge @ 24 hours PP, patient wishes to go home - Recommending f/u outpatient in 6 weeks Admission and Anticipated Discharge Date Admission Date: August 14, 2022 Supervising Physician Co-Signing Physician Notes Resident Physician Supervision Note: I interviewed and examined the patient. Discussed with Dr. Martin and agree with findings and plan as documented in the note. Any exceptions or clarifications are listed here: PP1 s/p VAVD, doing well. Had 1-2 episodes of very severe cramping, a little improved with ibuprofen but not really by tylenol or heat packs. Seemed separate from breast feeding cramping. VSS, exam benign and wnl. Meeting all pp milestones. Will order percocet to try if has another episode of severe cramping. May desire d/c home today if feeling ok, ok to do so if desires Documented By: Stacie Dang MD Subjective Patient is a 36F who is PPD #1 following vacuum assisted vaginal delivery at 39 6/7. She reports feeling well overall this morning and wishes to go home later today. - Ambulation - well throughout room - Voiding/Hernandez - independent voids, no dysuria or pressure - Gas/Stool - passing gas, no bowel movement - Diet - regular, no nausea or emesis - Lochia - diminishing, light amount - Feeding Type - breast feeding - Pain Level - 0/10 at present (7/10 w/ abdominal cramping), controlled with Ibuprofen + Tylenol Review of Systems - Denies fever, chills, sweats - Denies shortness of breath, difficulty breathing, chest pain, palpitations, chest pressure. - Denies breast pain. - Denies dysuria. - Denies headache or changes in vision. Physical Exam Physical Exam: General: Alert, oriented. No acute distress. Cardiac: RRR, normal S1/S2, no murmurs/rubs/gallops. Respiratory: Non-labored, CTAB, no wheezes/rales/rhonchi. Symmetric chest rise. Abdomen: Soft, nontender, nondistended. Bowel sounds present. Uterus: Uterine fundus firm, palpable 2 cm below umbilicus. Lower Extremities: No lower extremity edema or swelling. No deep calf pain. James's negative bilaterally. Results & Data ([facility]) Vital Signs (Past 12 Hours) Vital Signs Temp Pulse Pulse Resp BP BP Pulse Ox 08/14/22 23:15 36.6 C 85 16 121/77 97 08/14/22 20:15 36.6 C 18 08/14/22 21:00 36.6 C 98 H 16 129/80 96 08/14/22 19:45 18 08/14/22 19:15 18 08/14/22 19:00 18 08/14/22 18:00 18 08/14/22 20:25 96 H 129/77 08/14/22 20:09 98 H 116/66 08/14/22 19:55 103 H 114/65 08/14/22 19:39 109 H 119/69 08/14/22 19:25 104 H 124/69 08/14/22 19:10 96 H 130/68 08/14/22 18:55 106 H 127/58 L 08/14/22 18:40 113 H 134/63 08/14/22 18:25 100 H 127/68 08/14/22 18:10 112 H 131/67 08/14/22 17:55 113 H 131/60 08/14/22 17:46 144 H 97 08/14/22 17:45 132 H 90 08/14/22 17:41 169 H 89 L 08/14/22 17:36 120 H 98 08/14/22 17:31 89 99 08/14/22 17:28 112 H 91 08/14/22 17:26 93 H 99 08/14/22 17:25 105 H 119/66 08/14/22 17:21 112 H 97 08/14/22 17:16 103 H 99 08/14/22 17:11 99 08/14/22 17:11 117 H 08/14/22 17:11 101 H 93 08/14/22 17:10 107 H 121/76 08/14/22 17:06 114 H 100 08/14/22 17:01 102 H 100 O2 Del Method 08/14/22 23:15 Room Air 08/14/22 20:15 Room Air 08/14/22 21:00 Room Air 08/14/22 19:45 08/14/22 19:15 08/14/22 19:00 08/14/22 18:00 08/14/22 20:25 08/14/22 20:09 08/14/22 19:55 08/14/22 19:39 08/14/22 19:25 08/14/22 19:10 08/14/22 18:55 08/14/22 18:40 08/14/22 18:25 08/14/22 18:10 08/14/22 17:55 08/14/22 17:46 08/14/22 17:45 08/14/22 17:41 08/14/22 17:36 08/14/22 17:31 08/14/22 17:28 08/14/22 17:26 08/14/22 17:25 08/14/22 17:21 08/14/22 17:16 08/14/22 17:11 08/14/22 17:11 08/14/22 17:11 08/14/22 17:10 08/14/22 17:06 08/14/22 17:01 Resident Activity Tracking Resident Involvement: Resident Care Provided Care Provided: OB Delivery
[2022-08-15] MEDS: PRENATAL VITAMIN 1 TAB PO SCH (07:50)
[2022-08-15] MEDS: DOCUSATE SODIUM 100 MG CAP PO SCH ×2 (07:50→20:40)
[2022-08-15] MEDS: FERROUS SULFATE 325 MG TAB PO SCH (07:50)
[2022-08-15] MEDS: HYDROCORTISONE ACETATE 25 MG SUPP PR PRN ×2 (08:08→20:40)
[2022-08-15] MEDS: oxyCODONE/ACETAMINOPHEN 5mg/325mg TAB PO PRN ×2 (10:08→13:57)
[2022-08-15] MEDS ORDERED: bisacodyL 5 MG TABEC PO SCH (20:00)
[2022-08-16] MEDS: IBUPROFEN 600 MG TAB PO PRN ×2 (02:31→07:58)
--- NOTE | 2022-08-16 05:11 | Obstetrical Progress Note ---
Date of Service August 16, 2022 Assessment & Plan (1) care following vaginal delivery: Plan - Overall, feeling well and eating well today - Infant feeding going well without concern - Urinating and passing gas appropriately - Ambulating well in room - Pain controlled w/ Ibuprofen/Tylenol - Hgb 11.3 on 08/14 - Vitals stable and wnl - GBS + received Vancomycin d/t PCN allergy - Routine PP care progressing well - Anticipate discharge today - Recommending f/u outpatient in 6 weeks Admission and Anticipated Discharge Date Admission Date: August 14, 2022 Supervising Physician Co-Signing Physician Notes Resident Physician Supervision Note: I was present with Dr. Martin during the history and exam. I discussed the case with the resident and agree with the findings and plan as documented in the note. Any exceptions or clarifications are listed here: doing well, cramps more tolerable. ready to go home. instructions reviewed. 6wk pp check recommended. Documented By: Bia Mcdaniel MD, FACOG Subjective Patient is a 36F who is PPD #2 following vacuum assisted vaginal delivery at 39 6/7. She reports feeling much improved this morning and wishes to go home. - Ambulation - well throughout room - Voiding/Hernandez - independent voids, no dysuria or pressure - Gas/Stool - passing gas, no bowel movement - Diet - regular, no nausea or emesis - Lochia - diminishing, light amount - Feeding Type - breast feeding w/o concern - Pain Level - 3/10, received Percocet yesterday, currently managed w/ Ibuprofen/Tylenol Review of Systems - Denies fever, chills, sweats - Denies shortness of breath, difficulty breathing, chest pain, palpitations, chest pressure. - Denies breast pain. - Denies dysuria. - Denies headache or changes in vision. Physical Exam Physical Exam: General: Alert, oriented. No acute distress. Cardiac: RRR, normal S1/S2, no murmurs/rubs/gallops. Respiratory: Non-labored, CTAB, no wheezes/rales/rhonchi. Symmetric chest rise. Abdomen: Soft, nontender, nondistended. Bowel sounds present. Uterus: Uterine fundus firm, palpable 2 cm below umbilicus. Lower Extremities: No lower extremity edema or swelling. No deep calf pain. James's negative bilaterally. Results & Data ([facility]) Vital Signs (Past 12 Hours) Vital Signs Temp Pulse Resp BP Pulse Ox O2 Del Method 08/15/22 23:30 36.6 C 70 16 103/65 Room Air 08/15/22 20:30 Room Air 08/15/22 19:31 36.7 C 91 H 18 121/77 98 Room Air Resident Activity Tracking Resident Involvement: Resident Care Provided Care Provided: OB Delivery
[2022-08-16] MEDS: PRENATAL VITAMIN 1 TAB PO SCH (07:58)
[2022-08-16] MEDS: FERROUS SULFATE 325 MG TAB PO SCH (07:58)
[2022-08-16] MEDS: DOCUSATE SODIUM 100 MG CAP PO SCH (07:58)
== END 2022-08-16 09:54 | disposition home or self-care (01) | DRG 807 ==
LOC: 4S1 07:37 → 4E2 20:55